=== PATIENT | male | born 1960 | race African-American/Black ===

== ENCOUNTER 2016-08-03 05:13 | Inpatient (IN) ==
[2016-08-03] MEDS ORDERED: VANCOMYCIN INJ 1,000 MG in SODIUM CHLORIDE 0.9% 250 ML IV ONE (06:00)
[2016-08-03] MEDS ORDERED: ceFAZolin 1,000 MG VIAL ONE (06:11)
[2016-08-03] MEDS ORDERED: SODIUM CHLORIDE 0.9% 100 ML IV ONE (06:11)
[2016-08-03] MEDS ORDERED: VANCOMYCIN 1,000 MG VIAL ONE (06:11)
[2016-08-03] MEDS ORDERED: PANTOPRAZOLE 40 MG TABLET PO ONE ×2 (06:40→08:57)
[2016-08-03] MEDS ORDERED: DIAZEPAM 5 MG TABLET PO ONE (06:40)
[2016-08-03] MEDS ORDERED: LACTATED RINGERS 1,000 ML IV SCH (07:00)
--- NOTE | 2016-08-03 07:11 | History and Physical Update ---
History and Physical Update - History and Physical H&P was reviewed, the patient examined and there: are no changes in the patients condition since last H&P was completed.
[2016-08-03] MEDS ORDERED: DIAZEPAM 5 MG TABLET ONE (08:57)
[2016-08-03] MEDS ORDERED: LISINOPRIL 10 MG TABLET ONE (08:57)
[2016-08-03] MEDS: LISINOPRIL 20 MG TABLET PO SCH (09:17)
[2016-08-03] MEDS ORDERED: diphenhydrAMINE CAP 25 MG CAPSULE PO PRN (09:27)
[2016-08-03] MEDS ORDERED: PROMETHAZINE 25 MG/1 ML VIAL IM PRN (09:27)
[2016-08-03] MEDS ORDERED: HYDROmorphone 2 MG/1 ML VIAL IV PRN (09:27)
[2016-08-03] MEDS ORDERED: ONDANSETRON 4 MG/2 ML VIAL IV PRN (09:27)
[2016-08-03] MEDS ORDERED: PROPOFOL 500 MG/50 ML BOTTLE IV ONE (09:27)
[2016-08-03] MEDS ORDERED: MAGNESIUM HYDROXIDE SUSP 30 ML UDCUP PO PRN (09:27)
[2016-08-03] MEDS ORDERED: BISACODYL 10 MG SUPP RECTAL PRN (09:27)
[2016-08-03] MEDS ORDERED: LIDOCAINE 2% 5 ML VIAL ONE (09:27)
[2016-08-03] MEDS ORDERED: ONDANSETRON 4 MG/2 ML VIAL ONE (09:27)
[2016-08-03] MEDS ORDERED: TRANEXAMIC ACID 1,000 MG/10 ML VIAL IV ONE (10:01)
[2016-08-03] MEDS ORDERED: ROPIVACAINE 0.5% 30 ML VIAL ONE (11:35)
[2016-08-03] MEDS ORDERED: MIDAZOLAM 2 MG/2 ML VIAL ONE (11:38)
[2016-08-03] MEDS ORDERED: fentaNYL 100 MCG/2 ML VIAL ONE (11:38)
[2016-08-03] MEDS ORDERED: ACETAMINOPHEN 1,000 MG/100 ML VIAL IV ONE (11:39)
--- NOTE | 2016-08-03 12:35 | XRay Report ---
Exam: XR knee 2V RT Date: 08/03/2016 9:29 AM Comparison: None Indication: Joint replacement Technique: AP and lateral right knee Findings: Recent right total knee replacement with postoperative findings. Impression: Satisfactory right total knee replacement. PROCEDURE INTERPRETED AT [facility] DEPARTMENT OF RADIOLOGY Final Report Signed by: Dr. Teresa Lo
[2016-08-03] MEDS ORDERED: HYDROmorphone PCA 30 MG/30 ML SYRINGE IV ONE (12:45)
[2016-08-03] MEDS: HYDROmorphone PCA 30 MG/30 ML SYRINGE IV SCH (12:50)
[2016-08-03] MEDS: ceFAZolin 2,000 MG in PREMIX 1 EACH IV SCH ×2 (14:48→23:49)
--- NOTE | 2016-08-03 17:21 | Orthopedic Progress Note ---
Orthopedics - Subjective Interval history: Comfortable good block good pulse discussed up in a.m. Exam - Constitutional Vitals: Period Temp Pulse Resp BP Sys/Hernandez Pulse Ox Last 24 Hr 97.3 F-98.1 F 60-73 14-27 88-150/65-95 95-99
--- NOTE | 2016-08-03 20:50 | Operative Note ---
DATE: 08/03/2016 PREOPERATIVE DIAGNOSIS: OSTEOARTHRITIS, RIGHT KNEE. POSTOPERATIVE DIAGNOSIS: SAME. OPERATIVE PROCEDURE: Right total knee (Attune). SURGEON: Richie Rievra Jr., MD [employer]OTH[employer] DRIER REPAIRER: Dr. Barnes. ANESTHESIA: Spinal. INDICATION: A 56-year-old black male with longstanding osteoarthritis to his right knee. He has borges d a previous left total knee done. He has maximized conservative treatment for his right knee over the years including multiple injections. He is no longer able to ambulate or perform his normal fun ction in work due to progressively worsening symptoms pain in his knee. He presents today for elect michela total knee. DESCRIPTION OF PROCEDURE: The patient is taken to the operating room and under spinal anesthetic th e right lower extremity positioned, prepped and draped in the usual sterile manner. He received Anc ef and Vancomycin preoperatively. A midline incision made over the anterior aspect of the right kne e. Sharp dissection was carried down through the skin and subcutaneous tissue. A median parapatell ar arthrotomy performed, the knee revealing extensive tricompartmental degenerative changes, large o steophytes, large effusion. Intramedullary alignment guides were used to make the appropriate cuts about the distal femur and proximal tibia. Both were sized to an 8, ultimately a fixed-bearing post erior stabilized 10 mm spacer was selected. Patella resurfaced with a 41 button. After irrigation, all 3 components were cemented into place. The wound was then closed over 2 1/8 inch Hemovac drain s and the tourniquet deflated at 58 minutes. The wound was closed after irrigation in a standard fa shion using #1 Vicryl for the arthrotomy, 2-0 Vicryl for the subcutaneous layer, and rahul for ski n. Sterile dressings applied. He was taken to the recovery room in stable condition.
[2016-08-03] MEDS: FONDAPARINUX 2.5 MG/0.5 ML SYRINGE SUBCUT SCH (20:58)
[2016-08-03] MEDS: DOCUSATE SODIUM 100 MG CAPSULE PO SCH (20:58)
[2016-08-03] MEDS: CYCLOBENZAPRINE 10 MG TABLET PO SCH (20:58)
[2016-08-03] MEDS: MELOXICAM 7.5 MG TABLET PO SCH (20:58)
[2016-08-04 05:37] LABS: Basophils % 0.1 % (0.0-0.8); Eosinophils # 0.1 10*3/uL (0.0-0.87); Eosinophils % 1.2 % (0.00-10.9); Hematocrit 36.5 VOL% (42.0-52.0); Hemoglobin 11.3 GM/DL (14.0-18.0); Lymphocytes # 1.7 10*3/uL (1.4-4.0); Lymphocytes % 16.5 % (21.2-54.2); Mean Corpuscular Hemoglobin 26 PG (27-34); Mean Corpuscular Volume 84.9 FL (87-102); Mean Platelet Volume 12.9 FL (9.6-12.0); Monocytes # 1.2 10*3/uL (0.11-0.8); Monocytes % 11.8 % (1.7-12.7); Neutrophils # 6.9 10*3/uL (1.4-7.4); Neutrophils % 69.4 % (38.7-73.9); Platelet Count 164 10*3/uL (130-400); Red Cell Distribution Width 15.3 % (9.3-17.3)
[2016-08-04 06:09] LABS: Calcium 8.3 MG/DL (8.5-10.1); Potassium 4.5 MMOL/L (3.5-5.1)
--- NOTE | 2016-08-04 08:26 | Consultation ---
Assessment and Plan (1) Status post total right knee replacement Status: Acute Assessment and plan: 08/04/2016 patient is doing very well pain is very tolerable present Current Visit: Yes (2) Morbid obesity due to excess calories Status: Acute Assessment and plan: 08/04/2016 this is chronic for the patient with discussed many times in the past about measures to improve upon this. He's going need a lot of behavioral/ cognitive therapy as well as prehospital medications. He is not worn any of these in the past Current Visit: Yes (3) Hypertension Status: Acute Assessment and plan: 08/04/2016: Blood pressure stable at present Current Visit: Yes History of Present Illness - Consult Narrative Reason for consult: medical management History of present illness: Mr. Rojas is a 56 year old male Who is well known to me. He is very pleasant, cognitive, psychologically and emotionally stable. He is a commercial truck driver of many years. Lives alone. Has a history of hypertension, chronic morbid obesity and hyperlipidemia. He also has been having significant and nursing home pain in his right knee which has not been able to be relieved with conservative measures either here or at the orthopedic clinic. Had a total right knee replacement yesterday and tolerated the procedure well. He is doing good at this time with only minimal pain. He is having some mild back pain from laying "flat on my back". Nonetheless he is without any acute distress and were going to monitor his vitals. His CBC is very good this morning with a hemoglobin and hematocrit of 11 and 36.5. His BMP is probably normal. We'll continue to follow with orthopedics appreciate their consult on this very pleasant patient. We'll continue his home medicines CC: Richie Rivera Jr., MD - Home Medications and Allergies Home Medications: Home Medications Medication Instructions Recorded Confirmed Type Aspirin [Ecotrin] 81 mg PO DAILY 07/07/16 08/03/16 History Atorvastatin [Lipitor] 10 mg PO DAILY 07/07/16 08/03/16 History Cyclobenzaprine [Flexeril] 10 mg PO BEDTIME 07/07/16 08/03/16 History Lisinopril 40 mg PO DAILY 07/07/16 08/03/16 History Meloxicam [Mobic] 7.5 mg PO BID 07/07/16 08/03/16 History Allergies/Adverse Reactions: Allergies Allergy/AdvReac Type Severity Reaction Status Date / Time No Known Allergies Allergy Unverified 08/03/16 08:17 12 point system: reviewed and no additional remarkable complaints except as stated (morbid obesity, obstructive sleep apnea (patient is using his own sleep apnea machine which he needs to maintain)) Medical,Surgical,& Family Hx - Medical History Rheumatology: History of;: Rheumatoid Arthritis Respiratory: History of: Obstructive Sleep Apnea (C PAP) - Surgical History Cardiac Surgeries: Sugical HX of: Vascular Access Devices (VEIN STRIPPING IN BOTH LEGS) Abdominal Surgeries: Surgical HX of: Colonoscopy (2 YEARS AGO) Orthopedic Surgeries: Surgical HX of;: Total Knee Replacement (Rt 2017) - Social History Smoking Status: Never smoker Frequency of Alcohol Use: Occasionally Type of Drug Use: None Exam - Constitutional Vitals: Period Temp Pulse Resp BP Sys/Hernandez Pulse Ox Last 24 Hr 96.1 F-98.1 F 60-108 14-27 88-162/65-95 95-99 Exam: GENERAL APPEARANCE: in no acute distress, well developed obese SKIN: no suspicious lesions, warm and dry. HEAD: normocephalic, atraumatic. EYES: pupils equal, round, reactive to light and accommodation. EARS: normal. THROAT: clear. ORAL CAVITY: mucosa moist. NECK/THYROID: neck supple, full range of motion, no cervical lymphadenopathy. HEART: no murmurs, regular rate and rhythm, S1, S2 normal. Negative chest pain LUNGS: clear to auscultation bilaterally. Negative shortness of breath ABDOMEN: normal, bowel sounds present, soft, nontender, nondistended. GENITOURINARY: deferred. EXTREMITIES: no clubbing, cyanosis, or edema. Dressing is in place on right leg and splint as well. Patient is able to move toes easily good capillary refill MUSCULOSKELETAL: normal, no swelling or deformity. NEUROLOGIC: nonfocal, motor strength normal upper and lower extremities , sensory exam intact. Results - Labs CBC & BMP: 08/04/16 04:40 08/04/16 04:40 Specialty Discharge - Follow Up or Referrals Follow up with: Hung Rivas Jr., MD [Physician] -
--- NOTE | 2016-08-04 08:30 | Orthopedic Progress Note ---
Orthopedics - Subjective Interval history: Comfortable H&H stable drain removed up to site a bit already ready to start PT will need rehabilitation placement. Exam - Constitutional Vitals: Period Temp Pulse Resp BP Sys/Hernandez Pulse Ox Last 24 Hr 96.1 F-98.1 F 60-108 14-27 88-162/65-95 95-99 Results - Labs CBC & BMP: 08/04/16 04:40 08/04/16 04:40 Specialty Discharge - Follow Up or Referrals Follow up with: Hung Rivas Jr., MD [Physician] -
[2016-08-04] MEDS: ASPIRIN EC 81 MG TABLET PO SCH (08:40)
[2016-08-04] MEDS: ATORVASTATIN 10 MG TABLET PO SCH (08:41)
[2016-08-04] MEDS: LISINOPRIL 20 MG TABLET PO SCH ×2 (08:41→08:43)
[2016-08-04] MEDS: DOCUSATE SODIUM 100 MG CAPSULE PO SCH ×2 (08:42→20:46)
[2016-08-04] MEDS: MELOXICAM 7.5 MG TABLET PO SCH ×2 (08:42→20:46)
[2016-08-04] MEDS: HYDROmorphone PCA 30 MG/30 ML SYRINGE IV SCH (09:30)
--- NOTE | 2016-08-04 10:25 | Anesthesia ---
Anesthesia Post OP - Post Ansesthetic Evaluation Patient seen in post op: Yes Resp: within normal limits CV: within normal limits Mental: within normal limits Temp: within normal limits [id number]-Laqidrexh: within normal limits Nausea and Vomiting: within normal limits Pain: within normal limits
--- NOTE | 2016-08-04 12:22 | Pathology Report from [facility] ---
ACCESSION # : [id number] PATIENT NAME : Vishal Rojas ORDERING DR : ALDO QUIÑONES JR, MD CLINICAL HX: RT knee osteoarthritis POST-OP DX: Same SPECIMEN INFO: RT knee bone & tissue GROSS DESCRIPTION: The specimen is received in formalin labeled with the patient 's name and consists of an aggregate of bone, cartilage and some adipose tissue collectively measuring 10.4 x 14.5 cm. The articular surfaces are focally degenerative with osteophyte formation and partly slipping present. Electrician Second sections submitted in one cassette. DIAGNOSIS FOR VISHAL ROJAS: RIGHT KNEE BONE & TISSUE, TOTAL REPLACEMENT: Osteoarthritis. SERVICE DATE: 08/03/2016 REPORT DATE: 08/04/2016 PATHOLOGIST: Meredith Mays M.D. [facility]
[2016-08-04] MEDS: CYCLOBENZAPRINE 10 MG TABLET PO SCH (20:46)
[2016-08-04] MEDS: TEMAZEPAM 7.5 MG CAPSULE PO PRN (20:46)
[2016-08-04] MEDS: FONDAPARINUX 2.5 MG/0.5 ML SYRINGE SUBCUT SCH (20:47)
[2016-08-05 06:19] LABS: Basophils % 0.4 % (0.0-0.8); Eosinophils # 0.2 10*3/uL (0.0-0.87); Eosinophils % 1.6 % (0.00-10.9); Hematocrit 34.2 VOL% (42.0-52.0); Hemoglobin 10.6 GM/DL (14.0-18.0); Immature Granulocytes % 1.4 %; Immature Granulocytes Absolute 0.15 #; Lymphocytes # 1.6 10*3/uL (1.4-4.0); Lymphocytes % 15.2 % (21.2-54.2); Mean Corpuscular Hemoglobin 27 PG (27-34); Mean Corpuscular Volume 86.1 FL (87-102); Mean Platelet Volume 12.4 FL (9.6-12.0); Monocytes # 1.5 10*3/uL (0.11-0.8); Neutrophils # 7.1 10*3/uL (1.4-7.4); Neutrophils % 67.4 % (38.7-73.9); Platelet Count 153 10*3/uL (130-400); Red Blood Count 3.97 10*6/uL (3.8-5.5); Red Cell Distribution Width 15.2 % (9.3-17.3); White Blood Count 10.5 10*3/uL (4.5-13.71)
[2016-08-05] MEDS ORDERED: MAGNESIUM HYDROXIDE SUSP 30 ML UDCUP PO ONE (07:38)
--- NOTE | 2016-08-05 08:03 | Orthopedic Progress Note ---
Orthopedics - Subjective Interval history: Improving with PT H&H stable up to chair ready. Continue PT will need rehabilitation placement. Likely Monday Exam - Constitutional Vitals: Period Temp Pulse Resp BP Sys/Hernandez Pulse Ox Last 24 Hr 97.1 F-98.2 F 53-93 15-20 129-163/71-97 89-98 Results - Labs CBC & BMP: 08/05/16 05:44 08/04/16 04:40 Specialty Discharge - Follow Up or Referrals Follow up with: Hung Rivas Jr., MD [Physician] -
--- NOTE | 2016-08-05 08:53 | Family Practice Progress Note ---
Family Practice - PN: Subj Interval history: Patient seen this morning. He is doing well. Had a reasonable night. The pain is gotten a little better today. In good spirits no acute distress. He has not had a bowel movement I'm going to give him some milk of magnesia. No problems otherwise and physical exam is unchanged Exam (Progress Note) - Constitutional Vitals: Period Temp Pulse Resp BP Sys/Hernandez Pulse Ox Last 24 Hr 97.1 F-98.2 F 53-93 15-20 129-163/71-97 89-98 Results - Labs CBC & BMP: 08/05/16 05:44 08/04/16 04:40 Assessment and Plan (1) Status post total right knee replacement Status: Acute Assessment and plan: 08/04/2016 patient is doing very well pain is very tolerable present Current Visit: Yes (2) Morbid obesity due to excess calories Status: Acute Assessment and plan: 08/04/2016 this is chronic for the patient with discussed many times in the past about measures to improve upon this. He's going need a lot of behavioral/ cognitive therapy as well as prehospital medications. He is not worn any of these in the past Current Visit: Yes (3) Hypertension Status: Acute Assessment and plan: 08/04/2016: Blood pressure stable at present Current Visit: Yes Specialty Discharge - Follow Up or Referrals Follow up with: Hung Rivas Jr., MD [Physician] -
[2016-08-05] MEDS: LISINOPRIL 20 MG TABLET PO SCH ×2 (09:00→09:43)
[2016-08-05] MEDS: ASPIRIN EC 81 MG TABLET PO SCH (09:42)
[2016-08-05] MEDS: DOCUSATE SODIUM 100 MG CAPSULE PO SCH ×2 (09:42→21:07)
[2016-08-05] MEDS: ATORVASTATIN 10 MG TABLET PO SCH (09:42)
[2016-08-05] MEDS: MELOXICAM 7.5 MG TABLET PO SCH ×2 (09:42→21:06)
[2016-08-05] MEDS: TEMAZEPAM 7.5 MG CAPSULE PO PRN (21:06)
[2016-08-05] MEDS: FONDAPARINUX 2.5 MG/0.5 ML SYRINGE SUBCUT SCH (21:07)
[2016-08-05] MEDS: CYCLOBENZAPRINE 10 MG TABLET PO SCH (21:07)
[2016-08-06] MEDS: ASPIRIN EC 81 MG TABLET PO SCH (09:17)
[2016-08-06] MEDS: LISINOPRIL 20 MG TABLET PO SCH ×2 (09:18→09:19)
[2016-08-06] MEDS: ATORVASTATIN 10 MG TABLET PO SCH (09:18)
[2016-08-06] MEDS: MELOXICAM 7.5 MG TABLET PO SCH ×2 (09:18→21:18)
[2016-08-06] MEDS: DOCUSATE SODIUM 100 MG CAPSULE PO SCH ×2 (09:18→21:18)
[2016-08-06] MEDS: LACTULOSE 20 GM/30 ML UDCUP PO PRN (09:44)
--- NOTE | 2016-08-06 10:21 | Orthopedic Progress Note ---
Assessment and Plan (1) Status post total right knee replacement Status: Acute Assessment and plan: Cont care: pt, pain control. dvt prophy, d/c planning Current Visit: Yes Orthopedics - Subjective Interval history: pt s/e. no complaints. no events overnight Exam - Constitutional Vitals: Period Temp Pulse Resp BP Sys/Hernandez Pulse Ox Last 24 Hr 97.3 F-98.3 F 80-114 15-20 114-144/59-89 92-98 - Extremities Exam Extremities exam: Present: normal inspection (RLE: dressing c/d/i, comp soft, sensation intact, pulses 2+, cap refill brisk, full AROM toes and ankle) Results - Labs CBC & BMP: 08/05/16 05:44 08/04/16 04:40 Lab Results: I have reviewed the past 24 hour labs Specialty Discharge - Follow Up or Referrals
--- NOTE | 2016-08-06 18:38 | Family Practice Progress Note ---
Family Practice - PN: Subj Interval history: Patient generally is doing well. He denies any new complaints. Pain is well controlled on present medications. No new problems noted. Continue present therapy Exam (Progress Note) - Constitutional Vitals: Period Temp Pulse Resp BP Sys/Hernandez Pulse Ox Last 24 Hr 96.3 F-98.3 F 70-114 15-20 114-147/59-86 92-97 Results - Labs CBC & BMP: 08/05/16 05:44 08/04/16 04:40 Specialty Discharge - Follow Up or Referrals
[2016-08-06] MEDS: FONDAPARINUX 2.5 MG/0.5 ML SYRINGE SUBCUT SCH (21:18)
[2016-08-06] MEDS: CYCLOBENZAPRINE 10 MG TABLET PO SCH (21:18)
[2016-08-07 02:23] LABS: Basophils % 0.2 % (0.0-0.8); Eosinophils # 0.3 10*3/uL (0.0-0.87); Eosinophils % 3.1 % (0.00-10.9); Hematocrit 31.6 VOL% (42.0-52.0); Hemoglobin 9.8 GM/DL (14.0-18.0); Immature Granulocytes % 2.3 %; Immature Granulocytes Absolute 0.23 #; Lymphocytes # 2.2 10*3/uL (1.4-4.0); Lymphocytes % 22.4 % (21.2-54.2); Mean Corpuscular Hemoglobin 26 PG (27-34); Mean Corpuscular Volume 84.9 FL (87-102); Monocytes # 0.9 10*3/uL (0.11-0.8); Monocytes % 9.2 % (1.7-12.7); Neutrophils # 6.2 10*3/uL (1.4-7.4); Neutrophils % 62.8 % (38.7-73.9); Platelet Count 189 10*3/uL (130-400); Red Blood Count 3.72 10*6/uL (3.8-5.5); Red Cell Distribution Width 15.1 % (9.3-17.3)
[2016-08-07 02:57] LABS: Calcium 8.3 MG/DL (8.5-10.1); Osmolality,Calculated 290.7 MOS/KG (273-304); Potassium 4.2 MMOL/L (3.5-5.1)
[2016-08-07] MEDS: LISINOPRIL 20 MG TABLET PO SCH ×2 (09:02→09:03)
[2016-08-07] MEDS: ASPIRIN EC 81 MG TABLET PO SCH (09:02)
[2016-08-07] MEDS: DOCUSATE SODIUM 100 MG CAPSULE PO SCH ×2 (09:02→21:02)
[2016-08-07] MEDS: ATORVASTATIN 10 MG TABLET PO SCH (09:02)
[2016-08-07] MEDS: MELOXICAM 7.5 MG TABLET PO SCH ×2 (09:02→21:02)
--- NOTE | 2016-08-07 12:02 | Orthopedic Progress Note ---
Assessment and Plan (1) Status post total right knee replacement Status: Acute Assessment and plan: Cont care: pt, pain control. dvt prophy, d/c planning Current Visit: Yes Orthopedics - Subjective Interval history: pt s/es, no complaints. Exam - Constitutional Vitals: Period Temp Pulse Resp BP Sys/Hernandez Pulse Ox Last 24 Hr 96.9 F-98.6 F 70-91 16-21 121-150/77-96 96-100 - Extremities Exam Extremities exam: Present: normal inspection (RLE: dressing c/d/i, comp soft, sensation intact, cap refill brisk, calf supple. good AROM toes/ankle) Results - Labs CBC & BMP: 08/07/16 02:02 08/07/16 02:02 Specialty Discharge - Follow Up or Referrals
--- NOTE | 2016-08-07 14:25 | Family Practice Progress Note ---
Family Practice - PN: Subj Interval history: Patient is resting well and denies any new complaints. He has been sitting up and ambulating. Pain well controlled at present. Presently using CPAP when lying down. He denies any other associated complaints vitals and labs have been stable. Awaiting swing bed or rehabilitation placement early next week Exam (Progress Note) - Constitutional Vitals: Period Temp Pulse Resp BP Sys/Hernandez Pulse Ox Last 24 Hr 96.9 F-98.6 F 70-98 16-21 121-166/77-96 96-100 General appearance: no acute distress - ENT ENT exam: Present: normal exam - Respiratory Respiratory exam: Present: clear to auscultation bilaterally - Cardiovascular Cardiovascular exam: Present: regular rate and rhythm - GI/Abdominal GI/Abdominal exam: Present: normal bowel sounds - Extremities Exam Extremities exam: Present: other (stable except for limitations from fracture) - Neurological Exam Neurological exam: Present: alert, oriented X3 - Psychiatric Psychiatric exam: Present: normal affect Results - Labs CBC & BMP: 08/07/16 02:02 08/07/16 02:02 Specialty Discharge - Follow Up or Referrals
[2016-08-07] MEDS: CYCLOBENZAPRINE 10 MG TABLET PO SCH (21:02)
[2016-08-07] MEDS: FONDAPARINUX 2.5 MG/0.5 ML SYRINGE SUBCUT SCH (21:02)
--- NOTE | 2016-08-08 08:05 | Orthopedic Progress Note ---
Orthopedics - Subjective Interval history: Comfortable. No complaints. Dressing dry. Awaiting placement. Exam - Constitutional Vitals: Period Temp Pulse Resp BP Sys/Hernandez Pulse Ox Last 24 Hr 96.0 F-99.5 F 66-98 18-20 126-166/65-90 94-98 Results - Labs CBC & BMP: 08/07/16 02:02 08/07/16 02:02 Specialty Discharge - Follow Up or Referrals
[2016-08-08] MEDS: LISINOPRIL 20 MG TABLET PO SCH ×2 (08:51→08:52)
[2016-08-08] MEDS: ASPIRIN EC 81 MG TABLET PO SCH (08:52)
[2016-08-08] MEDS: MELOXICAM 7.5 MG TABLET PO SCH ×2 (08:52→20:01)
[2016-08-08] MEDS: DOCUSATE SODIUM 100 MG CAPSULE PO SCH ×2 (08:53→20:02)
[2016-08-08] MEDS: ATORVASTATIN 10 MG TABLET PO SCH (08:53)
[2016-08-08] MEDS: LACTULOSE 20 GM/30 ML UDCUP PO PRN (08:53)
--- NOTE | 2016-08-08 17:31 | Family Practice Progress Note ---
Family Practice - PN: Subj Interval history: Patient seen this morning. Doing real well. In good spirits been eating well. Having good bowel movements and voiding well. No acute distress and is able to ambulate with walker. Exam (Progress Note) - Constitutional Vitals: Period Temp Pulse Resp BP Sys/Hernandez Pulse Ox Last 24 Hr 96.0 F-98.4 F 61-95 16-20 122-147/65-92 93-98 Exam: Exam grossly unchanged no fever chills nausea vomiting diarrhea no problems with HEENT. Cardiovascular rate regular Lungs clear no rales or rhonchi Abdomen soft nondistended Extremities please see above Results - Labs CBC & BMP: 08/07/16 02:02 08/07/16 02:02 Assessment and Plan (1) Status post total right knee replacement Status: Acute Assessment and plan: 08/04/2016 patient is doing very well pain is very tolerable present Current Visit: Yes (2) Morbid obesity due to excess calories Status: Acute Assessment and plan: 08/04/2016 this is chronic for the patient with discussed many times in the past about measures to improve upon this. He's going need a lot of behavioral/ cognitive therapy as well as prehospital medications. He is not worn any of these in the past Current Visit: Yes (3) Hypertension Status: Acute Assessment and plan: 08/04/2016: Blood pressure stable at present Current Visit: Yes Specialty Discharge - Follow Up or Referrals
[2016-08-08] MEDS: FONDAPARINUX 2.5 MG/0.5 ML SYRINGE SUBCUT SCH (20:01)
[2016-08-08] MEDS: CYCLOBENZAPRINE 10 MG TABLET PO SCH (20:02)
[2016-08-09] MEDS: MELOXICAM 7.5 MG TABLET PO SCH ×2 (08:07→20:59)
[2016-08-09] MEDS: LISINOPRIL 20 MG TABLET PO SCH ×2 (08:07→09:17)
[2016-08-09] MEDS: ATORVASTATIN 10 MG TABLET PO SCH (08:08)
[2016-08-09] MEDS: DOCUSATE SODIUM 100 MG CAPSULE PO SCH ×2 (08:08→20:59)
[2016-08-09] MEDS: ASPIRIN EC 81 MG TABLET PO SCH (08:08)
--- NOTE | 2016-08-09 10:24 | Orthopedic Progress Note ---
Orthopedics - Subjective Interval history: Comfortable dressing dry making good progress with PT probably will be discharged home either Monday or at the latest. Agrees. Exam - Constitutional Vitals: Period Temp Pulse Resp BP Sys/Hernandez Pulse Ox Last 24 Hr 97.3 F-98.1 F 61-90 18-20 110-153/60-92 96-99 Results - Labs CBC & BMP: 08/07/16 02:02 08/07/16 02:02 Specialty Discharge - Follow Up or Referrals
--- NOTE | 2016-08-09 17:28 | Family Practice Progress Note ---
Family Practice - PN: Subj Interval history: Patient seen this morning is doing very well. Apparently was unable to get into rehabilitation facility, he did not qualify. Is going be monitored a few days longer here and he is doing well otherwise. Going to continue to give ambulating treat him for any pain he may be having. Exam (Progress Note) - Constitutional Vitals: Period Temp Pulse Resp BP Sys/Hernandez Pulse Ox Last 24 Hr 97.3 F-98.1 F 61-90 18-20 110-153/60-75 96-99 Exam: Exam grossly unchanged no fever chills , doing well Lungs clear no rales or rhonchi Abdomen soft nondistended, very obese Extremities please see above. Ambulating with walker Neurological no deficits. Results - Labs CBC & BMP: 08/07/16 02:02 08/07/16 02:02 Assessment and Plan (1) Status post total right knee replacement Status: Acute Assessment and plan: 08/04/2016 patient is doing very well pain is very tolerable present Current Visit: Yes (2) Morbid obesity due to excess calories Status: Acute Assessment and plan: 08/04/2016 this is chronic for the patient with discussed many times in the past about measures to improve upon this. He's going need a lot of behavioral/ cognitive therapy as well as prehospital medications. He is not worn any of these in the past Current Visit: Yes (3) Hypertension Status: Acute Assessment and plan: 08/04/2016: Blood pressure stable at present Current Visit: Yes Specialty Discharge - Follow Up or Referrals
[2016-08-09] MEDS: FONDAPARINUX 2.5 MG/0.5 ML SYRINGE SUBCUT SCH (20:58)
[2016-08-09] MEDS: CYCLOBENZAPRINE 10 MG TABLET PO SCH (20:59)
--- NOTE | 2016-08-10 08:05 | Orthopedic Progress Note ---
Orthopedics - Subjective Interval history: Continues to improve we'll add additional 1 day of therapy here today and then plan on discharging tomorrow with home health PT. Exam - Constitutional Vitals: Period Temp Pulse Resp BP Sys/Hernandez Pulse Ox Last 24 Hr 97.7 F-98.7 F 86-96 18-20 112-131/66-80 94-99 Results - Labs CBC & BMP: 08/07/16 02:02 08/07/16 02:02 Specialty Discharge - Follow Up or Referrals
[2016-08-10] MEDS: MELOXICAM 7.5 MG TABLET PO SCH ×2 (08:24→21:44)
[2016-08-10] MEDS: DOCUSATE SODIUM 100 MG CAPSULE PO SCH ×2 (08:25→21:45)
[2016-08-10] MEDS: ASPIRIN EC 81 MG TABLET PO SCH (08:25)
[2016-08-10] MEDS: ATORVASTATIN 10 MG TABLET PO SCH (08:26)
[2016-08-10] MEDS: LISINOPRIL 20 MG TABLET PO SCH ×2 (08:26→08:28)
[2016-08-10] MEDS: LACTULOSE 20 GM/30 ML UDCUP PO PRN (09:50)
--- NOTE | 2016-08-10 18:19 | Family Practice Progress Note ---
Family Practice - PN: Subj Interval history: pt seen cont. to do well. no complaints. cont to follow with ortho Exam (Progress Note) - Constitutional Vitals: Period Temp Pulse Resp BP Sys/Hernandez Pulse Ox Last 24 Hr 98.3 F-98.7 F 62-91 18-20 112-131/66-80 94-99 Results - Labs CBC & BMP: 08/07/16 02:02 08/07/16 02:02 Assessment and Plan (1) Status post total right knee replacement Status: Acute Assessment and plan: 08/04/2016 patient is doing very well pain is very tolerable present Current Visit: Yes (2) Morbid obesity due to excess calories Status: Acute Assessment and plan: 08/04/2016 this is chronic for the patient with discussed many times in the past about measures to improve upon this. He's going need a lot of behavioral/ cognitive therapy as well as prehospital medications. He is not worn any of these in the past Current Visit: Yes (3) Hypertension Status: Acute Assessment and plan: 08/04/2016: Blood pressure stable at present Current Visit: Yes Specialty Discharge - Follow Up or Referrals
[2016-08-10] MEDS: CYCLOBENZAPRINE 10 MG TABLET PO SCH (21:45)
[2016-08-10] MEDS: FONDAPARINUX 2.5 MG/0.5 ML SYRINGE SUBCUT SCH (21:45)
[2016-08-11] MEDS: ASPIRIN EC 81 MG TABLET PO SCH (08:59)
[2016-08-11] MEDS: DOCUSATE SODIUM 100 MG CAPSULE PO SCH (09:05)
[2016-08-11] MEDS: ATORVASTATIN 10 MG TABLET PO SCH (09:05)
[2016-08-11] MEDS: MELOXICAM 7.5 MG TABLET PO SCH (09:05)
[2016-08-11] MEDS: LISINOPRIL 20 MG TABLET PO SCH ×2 (09:06→09:09)
--- NOTE | 2016-08-11 09:23 | Orthopedic Progress Note ---
Orthopedics - Subjective Interval history: Has done very well with the additional couple of days PTs ambling down the [place]ero with a walker okay for discharge days formal instructions were given respect to home health home PT will follow me in about 3-4 weeks. Exam - Constitutional Vitals: Period Temp Pulse Resp BP Sys/Hernandez Pulse Ox Last 24 Hr 98.2 F-99.3 F 84-97 20-20 116-136/56-77 94-99 Results - Labs CBC & BMP: 08/07/16 02:02 08/07/16 02:02 Specialty Discharge - Follow Up or Referrals
--- NOTE | 2016-08-11 09:26 | Discharge Summary ---
Hospital Course - Hospital Course Hospital Course: Admitted for elective right total knee uneventful postoperative course stated additional couple of days for inpatient PT because he does not qualify for swing bed. Discharge to home with home health Diagnosis - Discharge Diagnosis (1) Osteoarthritis of right knee Status: Acute Specialty Discharge - Follow Up or Referrals Discharge Plan - Discharge Data Disposition: Home Health Service Condition at Discharge: Stable Discharge Diet: advance to your usual diet Activity: ambulate only with your walker, as per physical therapy, increase activity as tolerated Hygiene: may shower, keep area(s) dry Weight Bearing at Discharge: weight bear as tolerated - Discharge Medications New HYDROcodone/ACETAMIN 7.5-325 [[place] 7.5-325] 2 tablet PO Q4H PRN #30 tablet PRN Reason: Moderate Pain unrelieved by 1 Continue Atorvastatin [Lipitor] 10 mg PO DAILY Meloxicam [Mobic] 7.5 mg PO BID Aspirin [Ecotrin] 81 mg PO DAILY Lisinopril 40 mg PO DAILY Cyclobenzaprine [Flexeril] 10 mg PO BEDTIME - Follow Up or Referral - Forms/Instructions Instructions: Total Knee Replacement (DC) Additional Discharge Instructions: Discharge to home discharge medications [place] when necessary resume home medications including aspirin daily. Weightbearing as tolerated with total knee protocol and CPM rahul to be removed and wound Steri-Stripped August 17. Follow-up with me in 3 and half weeks Exam - Constitutional Vitals: Period Temp Pulse Resp BP Sys/Hernandez Pulse Ox Last 24 Hr 98.2 F-99.3 F 84-97 20-20 116-136/56-77 94-99 DS: Provider Date of admission: 08/03/16 05:13 Primary care physician: Beltran Ty DO Attending physician on admission: Richie Rivera Jr., MD Consults: 08/03/16 09:28 Consult to Case Mgmt/Social Srvs [CONS] Routine Reason for Case Mgmt/Social Srvs: Rehab Home Health Equipment Consult Comment: CPM machine, 5ft 9in, 396lbs; home rehab 4-[address] Rivera. Consult to Occupational Therapy [CONS] Routine Reason for Occupational Therapy: Evaluate and Treat Consult Comment: ADL's Consult to Physical Therapy [CONS] Routine Reason for Physical Therapy: Evaluate and Treat Gait Training 08/03/16 09:30 Consult to Physician [CONS] Routine Comment: Consulting Provider: Beltran Ty Consulting Provider Notified: Yes When should Consulting Provider be notified: Now Person Notified: erickson pina Date Notified: 08/03/16 Time Notified: 13:08 08/03/16 11:45 Consult to Pharmacy [CONS] Routine Reason for Pharmacy Consult: Adjust Meds Renal Funct Discharging clinician: Richie iRvera Jr., MD
[2016-08-11 15:01] VITALS: BP 127/66
== END 2016-08-11 14:40 | disposition home health service (06) | DRG 470 ==
LOC: N.SDSINP 05:13 → N.3E 09:26
PROVIDERS: ADMIT Orthopaedic Surgery; ATTEND Orthopaedic Surgery